=== PATIENT | female | born 1950 | race Hispanic/Latino ===

== ENCOUNTER 2017-07-19 14:45 | Inpatient (IN) | payer BC ==
[~2017-07-19] VITALS: Ht 149.9 cm; Wt 73.8 kg
[2017-07-19 15:35] VITALS: BP 119/66
[2017-07-19 15:55] LABS: BASOPHILS % (AUTO) 0.4 % (0.0-5.0); EOSINOPHILS % (AUTO) 1.9 % (0.0-8.0); HEMATOCRIT 37.5 % (36-48); LYMPHOCYTES % (AUTO) 24.7 % (21.0-51.0); MEAN CORPUSCULAR HEMOGLOBIN 33.3 pg (27.0-33.0); MEAN CORPUSCULAR HGB CONC 33.7 g/dL (32.0-36.0); MEAN CORPUSCULAR VOLUME 98.6 fL (79-99); MONOCYTES % (AUTO) 10.3 % (3.0-13.0); NEUTROPHILS % (AUTO) 62.7 % (40.0-77.0); PLATELET COUNT (AUTO) 258 K/uL (130-400); RED BLOOD CELL COUNT(AUTO) 3.81 MIL/uL (4.00-5.50); RED CELL DISTRIBUTION WIDTH 13.7 % (11.0-15.5); WHITE BLOOD COUNT (AUTO) 5.3 K/uL (4.8-10.8)
[2017-07-19 16:00] LABS: APPEARANCE,URINE Cloudy (CLEAR); BILIRUBIN,URINE Negative (NEGATIVE); COLOR,URINE Yellow (YELLOW); GLUCOSE, URINE (UA) Negative (NEGATIVE); KETONES,URINE Negative (NEGATIVE); LEUKOCYTE ESTERASE ,URINE Large (NEGATIVE); NITRATE,URINE Positive (NEGATIVE); OCCULT BLOOD,URINE Trace (NEGATIVE); PROTEIN,URINE Negative (NEGATIVE)
[2017-07-19 16:08] LABS: BACTERIA,URINE Many /HPF (None Seen); RBC,URINE 0-1 /HPF (0-1)
[2017-07-19 16:09] LABS: SQUAMOUS EPITHELIAL CELL,UR 0-2 /HPF (0-2)
[2017-07-19 16:11] LABS: CREATININE 0.9 mg/dL (0.5-1.5); POTASSIUM 4.4 mmol/L (3.5-5.1)
[2017-07-19 16:14] LABS: INR 0.97 (0.85-1.15); PARTIAL THROMBOPLASTIN TIME 28.7 SEC (26.3-35.5); PROTHROMBIN TIME 10.2 SEC (9.6-11.6)
[2017-07-19] MEDS ORDERED: CYAN500 PO (16:18)
[2017-07-19] MEDS ORDERED: LEVO100T12 PO (16:18)
[2017-07-19] MEDS ORDERED: LOSA100T29 PO (16:18)
[2017-07-19] MEDS ORDERED: FERR240T9 PO (16:18)
[2017-07-19] MEDS ORDERED: CHOL500050 PO (16:18)
[2017-07-22] VITALS (25 sets, daily range): BP systolic 114–165; BP diastolic 62–86
[2017-07-22] MEDS: CEFAZOLIN SODIUM 1 GM VIAL IVP SCH ×4 (06:00→23:31)
[2017-07-22] MEDS ORDERED: GENTAMICIN SULFATE 240 MG in SODIUM CHLORIDE 0.9% 100 ML IV SCH (06:00)
[2017-07-22] MEDS ORDERED: LACTATED RINGERS 1000ML 1,000 ML IV ONE (06:33)
[2017-07-22] MEDS ORDERED: CEFAZOLIN SODIUM 1 GM VIAL ONE (07:44)
[2017-07-22] MEDS ORDERED: BUPIVACAINE/PF 0.25% 30ML VIAL IJ ONE (07:44)
[2017-07-22] MEDS ORDERED: EPINEPHRINE 1 MG/ML AMPULE ONE (07:45)
[2017-07-22] MEDS ORDERED: NEOSTIGMINE 5MG/5ML SYR IV ONE (08:22)
[2017-07-22] MEDS ORDERED: DEXAMETHASONE SOD PHOSPHATE 10MG/ML 1ML VIAL ONE (08:22)
[2017-07-22] MEDS ORDERED: LIDOCAINE PF 2% 5ML ABBOJECT ONE (08:22)
[2017-07-22] MEDS ORDERED: PROPOFOL 10 MG/ML 20ML VIAL IV ONE (08:23)
[2017-07-22] MEDS ORDERED: FENTANYL CITRATE PF 50 MCG/1 ML 2ML VIAL ONE ×2 (08:23→08:52)
[2017-07-22] MEDS ORDERED: MIDAZOLAM HCL 1 MG/ML 2ML VIAL ONE (08:23)
[2017-07-22] MEDS: TRANEXAMIC ACID 1000MG/10ML IV ONE ×2 (08:25→10:45)
[2017-07-22] MEDS ORDERED: EPHEDRINE SULFATE 50 MG/ML AMPULE ONE (08:35)
[2017-07-22] MEDS ORDERED: POTASSIUM CHLORIDE 20MEQ/100ML 100 ML IV PRN (10:15)
[2017-07-22] MEDS ORDERED: CALCIUM CARBONATE 500 MG TABLET PO PRN (10:15)
[2017-07-22] MEDS ORDERED: FERROUS FUMARATE 324 MG TABLET PO PRN (10:15)
[2017-07-22] MEDS ORDERED: TEMAZEPAM 15 MG CAPSULE PO PRN (10:15)
[2017-07-22] MEDS ORDERED: ONDANSETRON HCL 4 MG/2 ML VIAL IVP PRN (10:15)
[2017-07-22] MEDS: ACETAMINOPHEN EXTRA STRENGTH 500 MG TABLET PO SCH ×2 (10:15→18:43)
[2017-07-22] MEDS ORDERED: TRAMADOL HCL 50 MG TABLET PO PRN (10:15)
[2017-07-22] MEDS ORDERED: OXYCODONE HCL 5 MG TAB PO PRN (10:15)
[2017-07-22] MEDS ORDERED: POTASSIUM CHLORIDE 20 MEQ ERTAB PO PRN (10:15)
[2017-07-22] MEDS ORDERED: LIDOCAINE HCL-MPF 1% 2ML VIAL IVP PRN (10:15)
[2017-07-22] MEDS ORDERED: DiphenhydrAMINE HCL 50 MG/ML VIAL IVP PRN (10:15)
[2017-07-22] MEDS ORDERED: POTASSIUM CHLORIDE 10% ELIXIR 20 MEQ/15 ML UDCUP PO PRN (10:15)
[2017-07-22] MEDS ORDERED: GLYCOPYRROLATE 0.2 MG/ML 5 ML VIAL ONE (10:20)
[2017-07-22] MEDS ORDERED: MEPERIDINE-PF 50 MG/ML SYG ONE ×2 (11:00→11:08)
[2017-07-22] MEDS: SODIUM CHLORIDE 0.9% 1000ML 1,000 ML IV SCH ×2 (12:11→21:18)
[2017-07-22] MEDS: KETOROLAC TROMETHAMINE 15MG/ML IV PRN (12:43)
[2017-07-22] MEDS: FERATE PO SCH ×2 (14:00→21:00)
[2017-07-22] MEDS ORDERED: CEFAZOLIN 2GM / 50 ML 50 ML IV SCH (15:15)
[2017-07-22] MEDS ORDERED: ASPIRIN 325 MG TABLET PO SCH (21:00)
[2017-07-22] MEDS: FAMOTIDINE 20MG TAB 20 MG TAB PO SCH (21:18)
[2017-07-22] MEDS: PREGABALIN 25 MG CAP PO SCH (21:18)
[2017-07-22] MEDS: ASPIRIN 325 MG TABLET PO SCH (21:47)
[2017-07-22] MEDS: CELECOXIB 200 MG CAP PO SCH (21:48)
[2017-07-23 00:05] VITALS: BP 127/69
[2017-07-23] MEDS: ACETAMINOPHEN EXTRA STRENGTH 500 MG TABLET PO SCH ×3 (02:33→17:34)
[2017-07-23 04:06] VITALS: BP 137/66
[2017-07-23] MEDS: OXYCODONE HCL 5 MG TAB PO PRN ×2 (05:21→12:33)
[2017-07-23] MEDS: SODIUM CHLORIDE 0.9% 1000ML 1,000 ML IV SCH (05:56)
[2017-07-23 06:26] LABS: HEMATOCRIT 31.3 % (36-48); MEAN CORPUSCULAR HEMOGLOBIN 33.7 pg (27.0-33.0); MEAN CORPUSCULAR VOLUME 99.2 fL (79-99); PLATELET COUNT (AUTO) 210 K/uL (130-400); RED BLOOD CELL COUNT(AUTO) 3.15 MIL/uL (4.00-5.50); RED CELL DISTRIBUTION WIDTH 13.7 % (11.0-15.5); WHITE BLOOD COUNT (AUTO) 9.1 K/uL (4.8-10.8)
[2017-07-23 06:36] LABS: CREATININE 0.8 mg/dL (0.5-1.5)
[2017-07-23] MEDS: KETOROLAC TROMETHAMINE 15MG/ML IV PRN (07:17)
[2017-07-23 07:56] VITALS: BP 140/66
[2017-07-23] MEDS ORDERED: POLYETHYLENE GLYCOL 3350 17 GM POWD.PACK PO SCH (09:00)
[2017-07-23] MEDS ORDERED: LEVOTHYROXINE 100 MCG TABLET PO SCH (09:00)
[2017-07-23] MEDS: FERATE PO SCH ×2 (09:00→13:34)
[2017-07-23] MEDS ORDERED: LOSARTAN 100 MG TABLET PO SCH (09:00)
[2017-07-23] MEDS: ASPIRIN 325 MG TABLET PO SCH (09:03)
[2017-07-23] MEDS: FAMOTIDINE 20MG TAB 20 MG TAB PO SCH (09:04)
[2017-07-23] MEDS: CELECOXIB 200 MG CAP PO SCH (09:04)
[2017-07-23] MEDS: PREGABALIN 25 MG CAP PO SCH (09:04)
[2017-07-23 11:13] VITALS: BP 128/69
[2017-07-23 16:01] VITALS: BP 108/57
[2017-07-23] MEDS ORDERED: ASPI-1012 PO (19:07)
[2017-07-23] MEDS ORDERED: HYDR-309 PO (19:07)
[2017-07-25] MEDS ORDERED: BISACODYL 10 MG SUPP.RECT RC PRN (10:15)
== END 2017-07-23 19:00 | disposition home health service (06) | DRG 470 ==
LOC: EDSTATUS 14:45 → DAHIP 07-22 05:51 → 4AH 07-22 10:31
PROVIDERS: ADMIT Orthopaedic Surgery; ATTEND Orthopaedic Surgery
PROC: 0SRC0J9 Replacement of Right Knee Joint with Synthetic Substitute, Cemented, Open Approach (ICD-10-PCS; principal; 2017-07-22 08:20)
DX: M17.11 Unilateral primary osteoarthritis, right knee (principal); E03.9 Hypothyroidism, unspecified; I10 Essential (primary) hypertension; Z96.651 Presence of right artificial knee joint; Z96.652 Presence of left artificial knee joint; Z90.710 Acquired absence of both cervix and uterus; Z88.8 Allergy status to other drugs, medicaments and biological substances
CPT/HCPCS: 36415; 80048; 81001; 85025; 85027; 85610; 85730; 88305; 88311; 93005; A4218; J0171; J0690; J1100; J1580; J1885; J2001; J2175; J2250; J2704; J2710; J3010; J3490; J7030; J7120

== ENCOUNTER → 2023-09-20 | Outpatient (CLI) | payer OTHER ==
[~2023-09-20] MED LIST: ASPI-1012 PO; CHOL500050 PO; CYAN500T9 PO; FERR240T9 PO; HYDR-4457 PO; LEVO100T12 PO; LOSA100T59 PO
== END | disposition home or self-care (01) ==
LOC: RAH 08:50
PROVIDERS: ATTEND Internal Medicine
DX: R09.89 Other specified symptoms and signs involving the circulatory and respiratory systems (principal)
CPT/HCPCS: 93880

== ENCOUNTER → 2023-10-29 | Outpatient (CLI) | payer OTHER, MEDICARE | END | disposition home or self-care (01) | LOC: RAH 12:59 | PROVIDERS: ATTEND Internal Medicine | DX: G31.89 Other specified degenerative diseases of nervous system (principal); R42 Dizziness and giddiness; Z85.3 Personal history of malignant neoplasm of breast | CPT/HCPCS: 70450 ==

== ENCOUNTER → 2024-01-16 | Outpatient (CLI) | payer OTHER, MEDICARE ==
--- NOTE | 2024-01-16 11:00 | HMCIMG ---
DEXA BONE DENSITY SURVEY REASON: Unspecified menopausal and perimenopausal disorder COMPARISON: None TECHNIQUE: DEXA bone densitometry was performed in the lumbar spine and left hip. FINDINGS: Mean bone mass density in the spine is 0.728 g/sq cm, T score -2.9, corresponding with osteoporosis. Femoral neck T score is -1.9, proximal total femur T score is -1.6, corresponding with osteopenia. IMPRESSION: Osteoporosis indicating a high fracture risk.
== END | disposition home or self-care (01) ==
LOC: RAH 07:45
PROVIDERS: ATTEND Internal Medicine
DX: M81.0 Age-related osteoporosis without current pathological fracture (principal); N95.9 Unspecified menopausal and perimenopausal disorder
CPT/HCPCS: 77080